=== PATIENT | female | born 1955 | race Caucasian/White ===

== ENCOUNTER 2017-01-07 01:37 | Observation (INO) | payer BC ==
--- NOTE | 2017-01-07 01:50 | CPEKG ---
Heart Rate: 78 RR Interval: 769 P-R Interval: 148 QRSD Interval: 94 QT Interval: 416 QTC Interval: 474 P [place]: 20 QRS [place]: 90 T Wave [place]: -36 EKG Severity - ABNORMAL ECG - EKG Impression: SINUS RHYTHM EKG Impression: BORDERLINE RIGHT AXIS DEVIATION EKG Impression: NONSPECIFIC T ABNORMALITIES, INFERIOR LEADS Electronically Signed By: Damaris Guzman 07-Jan-2017 06:36:06
[2017-01-07] MEDS ORDERED: ASPIRIN 81 MG CHEWABLE TAB ONE (02:01)
[2017-01-07 02:14] LABS: % IMMATURE GRANULYOCYTES 0.4 % (0.0-1.1); ABSOLUTE IMMATURE GRANULOCYTES 0.03 10^3/uL (0.00-0.10); ADD DIFF? NO; ADD MORPH? NO; ADD SCAN? NO; ATYPICAL LYMPHOCYTE FLAG 0 (0-99); FRAGMENT RBC FLAG 0 (0-99); HEMATOCRIT 41.5 % (38.0-47.0); HEMOGLOBIN 13.7 g/dL (12.6-16.3); LEFT SHIFT FLG 10 (0-99); LIPEMIA HEMOLYSIS FLAG 80 (0-99); MEAN CELL HEMOGLOBIN 29.8 pg (27.9-34.1); MEAN CELL VOLUME 90.4 fL (81.5-99.8); MEAN PLATELET VOLUME 10.7 fL (8.7-11.7); PLATELET CLUMPS FLAG 0 (0-99); PLATELET COUNT 149 10^3/uL (150-400); RED BLOOD CELL COUNT 4.59 10^6/uL (4.18-5.33); RED CELL DISTRIBUTION WIDTH 13.3 % (11.5-15.2)
[2017-01-07 02:19] LABS: ANION GAP 11 mEq/L (8-16); CALCIUM 9.4 mg/dL (8.5-10.4); CARBON DIOXIDE 22 mEq/l (22-31); CHLORIDE 102 mEq/L (97-110); CREATININE 0.9 mg/dL (0.6-1.0); GLOMERULAR FILTRATION RATE > 60; GLUCOSE 99 mg/dL (70-100); POTASSIUM 4.9 mEq/L (3.5-5.2); SODIUM 135 mEq/L (134-144)
[2017-01-07] MEDS ORDERED: ASPIRIN 81 MG CHEWABLE TAB PO ONE (02:28)
--- NOTE | 2017-01-07 02:28 | EDPHY ---
H & P Stated Complaint: CP; hasn't felt well today Time Seen by Provider: 01/07/17 01:45 HPI/ROS: HPI The patient presents with chest pain which began in between 12 and 1:00 a.m. this morning while she was trying to sleep. During the day yesterday she says that she generally was not feeling well, she had stomach pains and felt nauseated, she was not able to eat or drink much. Then at about midnight to 1: 00 a.m. she developed a strong pain throughout her chest that was severe enough to take her breath away she says. This was associated with diaphoresis and lightheadedness. It lasted for about 30 minutes and is now mostly resolved. A few days ago, her and her drove 26 hours from [place] to [place]. She does not have any leg swelling. REVIEW OF SYSTEMS Constitutional: No fever, no chills. Eyes: No discharge. ENT: No sore throat. Cardiovascular: Positive for chest pain, no palpitations. Respiratory: No cough, positive for shortness of breath. Gastrointestinal: No abdominal pain, no vomiting. Genitourinary: No hematuria. Musculoskeletal: No back pain. Skin: No rashes. Neurological: No headache. PMHx: Cholecystectomy about 5 years ago, had a stress test at this time that was normal, hypothyroidism Soc Hx: Visiting from [place], exercises frequently, walks and runs, nonsmoker FHx: Sister with PR in her 30s, thought to be related to her diabetes PHYSICAL General Appearance: Alert, no distress Eyes: Pupils equal and round no pallor or injection ENT, Mouth: Mucous membranes moist Respiratory: There are no retractions, lungs are clear to auscultation Cardiovascular: Regular rate and rhythm Gastrointestinal: Abdomen is soft and non-tender, no masses, bowel sounds normal Neurological: A&O, moves all extremities Skin: Warm and dry, no rashes Musculoskeletal: Neck is supple non tender Extremities: symmetrical, full range of motion Psychiatric: Patient is oriented X 3, there is no agitation Source: Patient Exam Limitations: No limitations - Personal History Current Tetanus/Diphtheria Vaccine: Yes - Medical/Surgical History Hx Asthma: No Hx Chronic Respiratory Disease: No Hx Diabetes: No Hx Cardiac Disease: No Hx Renal Disease: No Hx Cirrhosis: No Hx Alcoholism: No Hx HIV/AIDS: No Hx Splenectomy or Spleen Trauma: No Other PMH: PSHx: gallbladder removed, 3x c section. PMHx: hypothryoid - Social History Smoking Status: Never smoked Constitutional: Initial Vital Signs Temperature (C) 36.4 C 01/07/17 01:40 Heart Rate 86 01/07/17 01:40 Respiratory Rate 16 01/07/17 01:40 Blood Pressure 97/66 L 01/07/17 01:40 O2 Sat (%) 99 01/07/17 01:40 O2 Delivery Mode Room Air Allergies/Adverse Reactions: naproxen [From Aleve] Allergy (Verified 01/07/17 01:40) niacin Allergy (Verified 01/07/17 01:40) Home Medications: Medication Instructions Recorded Levothyroxine 01/07/17 Multi-Vitamin Daily 01/07/17 VITAMIN D 01/07/17 Medical Decision Making - Diagnostics EKG Interpretation: EKG: Complete interpretation has been separately recorded in the [facility] archive. Summary impression: T-wave inversions in lateral leads, T-wave flattening in V1, no old for comparison Imaging Results: Chest x-ray two view shows no cardiomegaly, no effusion, no infiltrate, interpreted by me, radiology interpretation pending. Differential Diagnosis: This is a 61-year-old female with family history of CAD, presenting with chest pain associated with diaphoresis and lightheadedness while she was trying to sleep tonight. Differential diagnosis includes ACS, PE, GERD. In the emergency room, EKG was obtained which showed T-wave inversions in the inferior leads. We do not have an old for comparison. Otherwise her testing was unremarkable. HEART score calcuated at 4. We have discussed admission to the hospital for provocative testing given the concerning nature of her pain as well as these EKG findings, she is in agreement with this. She remained chest pain-free in the emergency room. The patient was admitted to Dr. Mary Escobedo. - Data Points Laboratory Results: Laboratory Results 01/07/17 01:56 01/07/17 01:56 01/07/17 01/07/17 01/07/17 01:56 01:56 01:56 WBC 7.76 10^3/uL 10^3/uL (3.80-9.50) RBC 4.59 10^6/uL 10^6/uL (4.18-5.33) Hgb 13.7 g/dL g/dL (12.6-16.3) Hct 41.5 % % (38.0-47.0) MCV 90.4 fL fL (81.5-99.8) MCH 29.8 pg pg (27.9-34.1) MCHC 33.0 g/dL g/dL (32.4-36.7) RDW 13.3 % % (11.5-15.2) Plt Count 149 10^3/uL L 10^3/uL (150-400) MPV 10.7 fL fL (8.7-11.7) Neut % (Auto) 84.2 % H % (39.3-74.2) Lymph % (Auto) 9.9 % L % (15.0-45.0) [place] % (Auto) 4.0 % L % (4.5-13.0) Eos % (Auto) 1.2 % % (0.6-7.6) Baso % (Auto) 0.3 % % (0.3-1.7) Nucleat RBC Rel Count 0.0 % % (0.0-0.2) Absolute Neuts (auto) 6.54 10^3/uL H 10^3/uL (1.70-6.50) Absolute Lymphs (auto) 0.77 10^3/uL L 10^3/uL (1.00-3.00) Absolute Monos (auto) 0.31 10^3/uL 10^3/uL (0.30-0.80) Absolute Eos (auto) 0.09 10^3/uL 10^3/uL (0.03-0.40) Absolute Basos (auto) 0.02 10^3/uL 10^3/uL (0.02-0.10) Absolute Nucleated RBC 0.00 10^3/uL 10^3/uL (0-0.01) Immature Gran % 0.4 % % (0.0-1.1) Immature Gran # 0.03 10^3/uL 10^3/uL (0.00-0.10) D-Dimer 0.40 ug/mLFEU ug/mLFEU (0.00-0.50) Sodium 135 mEq/L mEq/L (134-144) Potassium 4.9 mEq/L mEq/L (3.5-5.2) Chloride 102 mEq/L mEq/L (97-110) Carbon Dioxide 22 mEq/l mEq/l (22-31) Anion Gap 11 mEq/L mEq/L (8-16) BUN 20 mg/dL mg/dL (7-23) Creatinine 0.9 mg/dL mg/dL (0.6-1.0) Estimated GFR > 60 Glucose 99 mg/dL mg/dL (70-100) Calcium 9.4 mg/dL mg/dL (8.5-10.4) Troponin I < 0.012 ng/mL ng/mL (0-0.034) Medications Given: Discontinued Medications Aspirin (Aspirin) 324 mg PO EDNOW ONE Stop: 01/07/17 02:29 Last Admin: 01/07/17 02:05 Dose: 324 mg Departure - Departure Disposition: [facility] Inpatient Acute Clinical Impression: Abnormal EKG Chest pain Qualifiers: Chest pain type: unspecified Qualified Code(s): R07.9 - Chest pain, unspecified Condition: Fair Referrals: Patient,NotPresent [Unknown] - As per Instructions
[2017-01-07 02:31] LABS: TROPONIN I < 0.012 ng/mL (0-0.034)
[2017-01-07] MEDS ORDERED: ONDANSETRON DISINTEGRATING 4 MG TAB PO PRN (03:10)
[2017-01-07] MEDS ORDERED: ONDANSETRON 4 MG/2 ML VIAL IVP PRN (03:10)
[2017-01-07] MEDS ORDERED: NITROGLYCERIN 0.4 MG BTL SL PRN (03:10)
[2017-01-07] MEDS ORDERED: ACETAMINOPHEN 325 MG TAB PO PRN (03:10)
[2017-01-07] MEDS ORDERED: LIDOCAINE 2% VISCOUS 15 ML UDCUP PO ONE (03:18)
[2017-01-07] MEDS ORDERED: HYOSCYAMINE SULFATE 0.125 MG TAB PO ONE (03:18)
[2017-01-07] MEDS ORDERED: MAG HYDROX/AL HYDROX/SIMETH 30 ML UDCUP PO ONE (03:18)
[2017-01-07] MEDS ORDERED: HYOSCYAMINE SULFATE 0.125 MG TAB ONE (03:26)
[2017-01-07] MEDS ORDERED: LIDOCAINE 2% VISCOUS 15 ML UDCUP ONE (03:27)
[2017-01-07] MEDS ORDERED: MAG HYDROX/AL HYDROX/SIMETH 30 ML UDCUP ONE (03:27)
[2017-01-07 03:32] LABS: ALBUMIN 4.3 g/dL (3.5-5.0); BILIRUBIN,TOTAL 1.2 mg/dL (0.1-1.4); BILIRUBIN-CONJUGATED 0.5 mg/dL (0.0-0.5); BILIRUBIN-UNCONJUGATED 0.7 mg/dL (0.0-1.1); TOTAL PROTEIN 7.1 g/dL (6.3-8.2)
--- NOTE | 2017-01-07 03:53 | PDCPHP ---
History and Physical Chief Complaint: chest pain - History of Present Illness This is a 61 yo female with h/o hypothyroidism who presents to the ED complaining of sub-sternal chest pressure. She and her drove 26 [place] straight from [place] to visit their daughter in [place]. Yesterday, she felt general malaise and lower abdominal discomfort. This progressed to epigastric pain and was associated with nausea and poor appetite. She hasn't eaten since noon yesterday. She had 1/4 glass of wine 2 nights ago and rarely drinks alcohol. No fevers or chills. Denies diarrhea, but feels like she needs to move her bowels. She awoke from sleep around midnight with chest pain which she describes as pressure and sharp. This was associated with diaphoresis. No radiation of the pain. No associated SOB. Her sister has diabetes and had an CT at age 35. Pt has no other cardiac risk factors. Reports recent cholesterol panel was good. No h/o htn, DM, and she is a lifetime nonsmoker. She is active, a runner. In the ED, trop is negative. Initial EKG showed some T wave inversions in inferior leads and she is admitted for further evaluation. Cardiac Risk Factors: family history of premature CAD Timing/Duration: Minutes, Resolved prior to arrival Severity: moderate Location: substernal, epigastric, abdomen Activities at Onset: sleep Associated Symptoms: loss of appetite, malaise, nausea/vomiting History Information - Allergies/Home Medication List Allergies/Adverse Reactions: naproxen [From Aleve] Allergy (Verified 01/07/17 01:40) niacin Allergy (Verified 01/07/17 01:40) Home Medications: Levothyroxine 01/07/17 [Last Taken Unknown] Multi-Vitamin Daily 01/07/17 [Last Taken Unknown] VITAMIN D 01/07/17 [Last Taken Unknown] I have personally reviewed and updated: family history, medical history, social history, surgical history - Past Medical History Additional medical history: hypothyroidism - Surgical History Reports: cholecystectomy - Family History Positive for: female first degree with premature CAD - Social History Smoking Status: Never smoked Alcohol Use: Rarely Drug Use: None Additional social history: Lives in [place], visiting her daughter here with her . They drove straight through, 26 hrs. Review of Systems ROS: 10pt was reviewed & negative except for what was stated in HPI & below DONI Risk Evaluation age greater or equal to 65: no greater or equal to 3 CAD risk factors: no known CAD(stenosis greater or eqaul to 50%): no ASA use in past 7 days: no severe angina(greater or equal to 2 episodes in 24hrs): no EKG ST changes greater or equal to 0.5mm: yes positive cardiac marker: no Total Score: 2 DONI Score: 8.3% risk Physical Exam Temp Pulse Resp BP Pulse Ox 36.4 C 86 16 97/66 L 99 01/07/17 01:40 01/07/17 01:40 01/07/17 01:40 01/07/17 01:40 01/07/17 01:40 Constitutional: no apparent distress Eyes: PERRL Ears, Nose, Mouth, Throat: moist mucous membranes Cardiovascular: regular rate and rhythym, no murmur, rub, or gallop Respiratory: no respiratory distress, clear to auscultation Gastrointestinal: normoactive bowel sounds, soft, non-tender abdomen Skin: warm Musculoskeletal: full muscle strength Neurologic: AAOx3 Psychiatric: interacting appropriately Lab Data & Imaging Review 01/07/17 01:56 01/07/17 01:56 WBC 7.76 10^3/uL (3.80-9.50) 01/07/17 01:56 RBC 4.59 10^6/uL (4.18-5.33) 01/07/17 01:56 Hgb 13.7 g/dL (12.6-16.3) 01/07/17 01:56 Hct 41.5 % (38.0-47.0) 01/07/17 01:56 MCV 90.4 fL (81.5-99.8) 01/07/17 01:56 MCH 29.8 pg (27.9-34.1) 01/07/17 01:56 MCHC 33.0 g/dL (32.4-36.7) 01/07/17 01:56 RDW 13.3 % (11.5-15.2) 01/07/17 01:56 Plt Count 149 10^3/uL (150-400) L 01/07/17 01:56 MPV 10.7 fL (8.7-11.7) 01/07/17 01:56 Neut % (Auto) 84.2 % (39.3-74.2) H 01/07/17 01:56 Lymph % (Auto) 9.9 % (15.0-45.0) L 01/07/17 01:56 [place] % (Auto) 4.0 % (4.5-13.0) L 01/07/17 01:56 Eos % (Auto) 1.2 % (0.6-7.6) 01/07/17 01:56 Baso % (Auto) 0.3 % (0.3-1.7) 01/07/17 01:56 Nucleat RBC Rel Count 0.0 % (0.0-0.2) 01/07/17 01:56 Absolute Neuts (auto) 6.54 10^3/uL (1.70-6.50) H 01/07/17 01:56 Absolute Lymphs (auto) 0.77 10^3/uL (1.00-3.00) L 01/07/17 01:56 Absolute Monos (auto) 0.31 10^3/uL (0.30-0.80) 01/07/17 01:56 Absolute Eos (auto) 0.09 10^3/uL (0.03-0.40) 01/07/17 01:56 Absolute Basos (auto) 0.02 10^3/uL (0.02-0.10) 01/07/17 01:56 Absolute Nucleated RBC 0.00 10^3/uL (0-0.01) 01/07/17 01:56 Immature Gran % 0.4 % (0.0-1.1) 01/07/17 01:56 Immature Gran # 0.03 10^3/uL (0.00-0.10) 01/07/17 01:56 D-Dimer 0.40 ug/mLFEU (0.00-0.50) 01/07/17 01:56 Sodium 135 mEq/L (134-144) 01/07/17 01:56 Potassium 4.9 mEq/L (3.5-5.2) 01/07/17 01:56 Chloride 102 mEq/L (97-110) 01/07/17 01:56 Carbon Dioxide 22 mEq/l (22-31) 01/07/17 01:56 Anion Gap 11 mEq/L (8-16) 01/07/17 01:56 BUN 20 mg/dL (7-23) 01/07/17 01:56 Creatinine 0.9 mg/dL (0.6-1.0) 01/07/17 01:56 Estimated GFR > 60 01/07/17 01:56 Glucose 99 mg/dL (70-100) 01/07/17 01:56 Calcium 9.4 mg/dL (8.5-10.4) 01/07/17 01:56 Total Bilirubin 1.2 mg/dL (0.1-1.4) 01/07/17 01:56 Conjugated Bilirubin 0.5 mg/dL (0.0-0.5) 01/07/17 01:56 Unconjugated Bilirubin 0.7 mg/dL (0.0-1.1) 01/07/17 01:56 AST 193 IU/L (14-46) H 01/07/17 01:56 ALT 87 IU/L (9-52) H 01/07/17 01:56 Alkaline Phosphatase 103 IU/L (38-126) 01/07/17 01:56 Troponin I < 0.012 ng/mL (0-0.034) 01/07/17 01:56 Total Protein 7.1 g/dL (6.3-8.2) 01/07/17 01:56 Albumin 4.3 g/dL (3.5-5.0) 01/07/17 01:56 Lipase 66.0 IU/L (23-300) 01/07/17 01:56 Visualized and Interpreted Chest x-ray results: Yes Chest X-Ray results: no infiltrate, normal Visualized and Interpreted EKG results: Yes EKG Interpretation: Positive for: normal sinsus rhythm, ST depression, T waves inversion Assessment and Plan Assessment: This is a 61 yo,White,F presenting with chest pain at intermediate risk ( DONI 2-4) for Acute coronary syndrome. Chest pain - Now resolved. Trop neg. D dimer neg. EKG with inferior T wave inversions and <[address] depression. Consider angina vs GI related given preceding GI symptoms. Cardiac risk factors include +family h/o PHD, sister had CT age 35. She received a full dose ASA in ED. -cycle troponin -repeat EKG to assess for evolutionary changes -prn ntg -defer BB given SBP in the 90's -check lipid status -stress test in am if 2nd trop neg and no dynamic EKG changes -try GI cocktail Elevated LFT's - AST/ALT pattern suggestive of etoh, though she is not a drinker. Consider viral etiology with GI symptoms. Other causes of AST predominant hepatocellular injury include PADGETT and Daryl's disease. -check acute hepatitis panel -consider u/s, further w/u if pain persists Hypothyroidism - cont Levothyroxine once med rec completed. Full code Dispo - obs Plan: The patient will be placed in observation due to concerns for Acute Coronary Syndrome. * continuous telemetry to monitor for ST segment changes * monitor vital signs every 4 hours * morphine sulfate IV and nitroglycerin sublingual as needed for chest pain * repeat EKG in 6 hours to monitor for changes that would suggest ischemia or infarction * repeat EKG as needed for recurrent chest pain * repeat troponin in 4-6 hours after onset of chest pain * Arrange for [inpatient][outpatient]stress test once chest pain is resolved, repeat troponin and EKG are negative, and the patient is symptom free for greater than 6 hours from the onset of pain * If the patient develops dynamic EKG changes consistent with ischemia/ infarction, troponin elevation, or has an abnormal stress test the patient will be treated for acute coronary syndrome as clinically indicated. * []
[2017-01-07 05:32] LABS: CHOLESTEROL 171 mg/dL (140-220); CHOLESTEROL/HDL RATIO 1.82 RATIO (1.00-4.44); HIGH DENSITY LIPOPROTEIN 94 mg/dL (40-85); LDL/HDL RATIO 0.69 RATIO (1.00-3.22); LOW DENSITY LIPOPROTEIN 65 mg/dL (80-100); NON-HIGH DENSITY LIPOPROTEIN 77 mg/dL (90-129); TRIGLYCERIDE 63 mg/dL (35-135); VERY LOW DENSITY LIPOPROTEINS 12 mg/dL (8-25)
--- NOTE | 2017-01-07 05:39 | CPEKG ---
Heart Rate: 60 RR Interval: 1000 P-R Interval: 152 QRSD Interval: 98 QT Interval: 456 QTC Interval: 456 P [place]: -9 QRS [place]: 77 T Wave [place]: 16 EKG Severity - NORMAL ECG - EKG Impression: SINUS RHYTHM Electronically Signed By: Damaris Guzman 07-Jan-2017 06:35:56
[2017-01-07] MEDS ORDERED: NS BOLUS 500 ML (Wide open) IV ONE (06:00)
--- NOTE | 2017-01-07 13:40 | PDCARST ---
CAR Stress Test Results Type of Stress Test: Nuclear TM stress test Indication: cp Description of Procedure: After informed consent was obtained, pt was exercised according to Harrison Protocol. Monitoring was performed with standard stress river tester electrode placement. Vital signs were monitored according to protocol throughout the procedure. STRESS EKG AND HEMODYNAMIC DATA. Exercise time: 10: 15 min. This is equivalent to: 10.9 METS. Resting heart rate: 75 bpm. Resting blood pressure: 102/64 mmHg. Resting O2 saturation: 96%. Peak heart rate:142 bpm. This is 89% of age predicted maximum heart rate response. Peak blood pressure: 142/64 mmHg. Exercise O2: 95%. Arrhythmias: Rare PVC with exertion; rare PACs in recovery. Reason for termination: The test was stopped due to achieving target heart rate. Symptoms: The patient experienced no typical symptoms of angina during stress or recovery. Impression: STRESS TEST ANALYSIS. Baseline ECG: SR. Stress ECG: Twi in stage that resolved with progressive exercise; 1 mm flat to upsloping STD in Stage 4. exercise induced ischemic ECG changes: equivocal. Rhythm: rare arrhythmias noted during exercise and recovery. Blood pressure: Normal blood pressure response to exercise. Exercise tolerance: The patient has normal exercise tolerance adjusted for age and gender. Symptoms: No exercise induced symptoms. Conclusion: Await nuclear images.
[2017-01-07] MEDS ORDERED: TEMAZEPAM 15 MG CAP PO PRN (16:31)
--- NOTE | 2017-01-08 00:45 | GCON ---
[f rep st] CONSULTATION CARDIOLOGY CONSULTATION DATE OF CONSULTATION: 01/07/2017 REFERRING PHYSICIAN: Mary Escobedo MD INDICATIONS: Chest discomfort. HISTORY OF PRESENT ILLNESS: The patient is 61 years old visiting from [facility]. She has no d iagnosed cardiovascular disease. Her only cardiac risk factor is that of a sister with diabetes hav ing a myocardial infarction in her 30s. She was admitted last night through the emergency [facility] with chest discomfort. Her drove 26 hours from [facility]. They arrived the day befo re yesterday. She has not felt well since. She has had a slight headache, and symptoms of nausea. She has had several episodes of diarrhea. As a result, she went to bed last night at about 6 p.m. She continued to experience mild nausea, and had several rounds of watery diarrhea. At about 11 p. m., she developed the abrupt onset of precordial chest heaviness. This was described as a diffuse p ressure sensation. She had similar symptoms in her scapula and trapezius region of her back. She w as profusely diaphoretic. She also felt slightly short of breath. Her symptoms lasted for about an hour, and subsequently resolved. She states that she has felt a little fatigued since then. How er, has not had recurrent chest discomfort. Because of these symptoms, she was admitted through the emergency department to the PCU. On arrival to the hospital, she was hemodynamically stable. Room air saturations were 99%. Her blood pressure was 97/66. Her initial electrocardiogram demonstrate s sinus rhythm, with minor nonspecific ST and T changes. Serial cardiac enzymes overnight were nega tive. Her D-dimer was negative. Her liver function tests were slightly elevated, with an AST of 19 3, and an ALT of 87. Alkaline phosphatase was normal. A basic metabolic panel was likewise normal. Her CBC was unremarkable. Currently, she states she feels well. She has not had any fever, chill s or sweats. She has never had a DVT or PE. She has no calf tenderness. The pain was not describe d as ripping or tearing. There is no history of fevers or chills. PAST MEDICAL HISTORY: 1. Hypothyroidism. 2. Vitamin D deficiency. PAST SURGICAL HISTORY: Previous cholecystectomy. FAMILY HISTORY: Apparently, her sister, who has diabetes, suffered a myocardial infarction in her 3 0s. SOCIAL HISTORY: She is , and accompanied by her . They live in [facility] near [facility]. They have children who live in the local area here. She does not smoke, and she rarely us es alcohol. REVIEW OF SYSTEMS: A full 10-point review of systems was performed, and is otherwise negative. PHYSICAL EXAMINATION: VITAL SIGNS: Her blood pressure is currently 84/43, previously 106/58. Her heart rates have been in the 50s and 60s. GENERAL: She is a healthy female in no acute distress. HEENT: Normocephalic, atraumatic. She has anicteric sclerae. Oropharynx unremarkable. NECK: Car otids are 2+ bilaterally, with no bruits. She has no jugular venous distention, adenopathy or thyro megaly. RESPIRATORY: She is breathing easily, resting comfortably. There are no accessory muscles on auscultation. She has clear lung hollis bilaterally. CARDIAC: Precordial inspection is unrema rkable. PMI is nondisplaced. On auscultation, she has a regular rate and rhythm, without murmurs, gallops, or rubs. ABDOMEN: Soft and nontender. She has normoactive bowel sounds. EXTREMITIES: W arm and dry, and well perfused. VASCULATURE: She has 2+ radial, dorsal pedal and posterior tibial pulses. LABORATORY DATA: Database is as above. In addition to the above testing, the patient had a stress myocardial perfusion imaging study. I foote ve reviewed that with Radiology. This indicated reversible perfusion defects in the region of the s eptum and lateral wall. There was a significant amount of abnormal radiotracer uptake in the gut. IMPRESSION: The patient is a pleasant 61-year-old female visiting from [facility]. She present s now with abrupt onset of chest discomfort, with minor nonspecific electrocardiographic changes, an d negative cardiac enzymes. She had a stress myocardial perfusion imaging study that indicates two- vessel redistribution. Certainly, there was a lot of gut uptake. However, I do not think that thes e areas of redistribution can be ignored, especially in light of her chest pain syndrome. Presently , her chest pain syndrome is really not consistent with aortic dissection or pericarditis. There is also no indication of an infectious process. Her elevated LFTs certainly raise the question of a p ossible hepatobiliary source. She has had a previous cholecystectomy, although this does not preclu de the development of recurrent stones or potentially stricture. RECOMMENDATIONS: She and I discussed various options. Ultimately, we decided to proceed with coron jessie angiography. The risks, benefits, and alternatives were discussed with her today. She is in ag reement with proceeding. I will defer to her primary team regarding further workup of her elevated liver function tests. /[id number]/MODL
[2017-01-08 04:17] LABS: % IMMATURE GRANULYOCYTES 0.2 % (0.0-1.1); ABSOLUTE IMMATURE GRANULOCYTES 0.01 10^3/uL (0.00-0.10); ADD DIFF? NO; ADD MORPH? NO; ADD SCAN? NO; ATYPICAL LYMPHOCYTE FLAG 0 (0-99); FRAGMENT RBC FLAG 20 (0-99); HEMATOCRIT 35.3 % (38.0-47.0); HEMOGLOBIN 11.9 g/dL (12.6-16.3); LEFT SHIFT FLG 0 (0-99); LIPEMIA HEMOLYSIS FLAG 80 (0-99); MEAN CELL HEMOGLOBIN 30.1 pg (27.9-34.1); MEAN CELL HEMOGLOBIN CONCENTR. 33.7 g/dL (32.4-36.7); MEAN CELL VOLUME 89.4 fL (81.5-99.8); MEAN PLATELET VOLUME 10.7 fL (8.7-11.7); PLATELET CLUMPS FLAG 0 (0-99); PLATELET COUNT 138 10^3/uL (150-400); RED BLOOD CELL COUNT 3.95 10^6/uL (4.18-5.33); RED CELL DISTRIBUTION WIDTH 13.2 % (11.5-15.2)
[2017-01-08 04:27] LABS: APTT 26.5 SEC (23.0-38.0); INR 1.04 (0.83-1.16); PROTIME(PATIENT) 13.5 SEC (12.0-15.0)
[2017-01-08 04:35] LABS: ANION GAP 7 mEq/L (8-16); CALCIUM 9.3 mg/dL (8.5-10.4); CARBON DIOXIDE 25 mEq/l (22-31); CHLORIDE 108 mEq/L (97-110); CHOLESTEROL 127 mg/dL (140-220); CHOLESTEROL/HDL RATIO 1.74 RATIO (1.00-4.44); CREATININE 0.9 mg/dL (0.6-1.0); GLOMERULAR FILTRATION RATE > 60; GLUCOSE 81 mg/dL (70-100); HIGH DENSITY LIPOPROTEIN 73 mg/dL (40-85); LDL/HDL RATIO 0.55 RATIO (1.00-3.22); LOW DENSITY LIPOPROTEIN 40 mg/dL (80-100); NON-HIGH DENSITY LIPOPROTEIN 54 mg/dL (90-129); POTASSIUM 3.9 mEq/L (3.5-5.2); SODIUM 140 mEq/L (134-144); TRIGLYCERIDE 71 mg/dL (35-135); VERY LOW DENSITY LIPOPROTEINS 14 mg/dL (8-25)
[2017-01-08] MEDS ORDERED: LEVOTHYROXINE 88 MCG TAB PO SCH (06:00)
[2017-01-08] MEDS ORDERED: diphenhydrAMINE 25 MG CAP PO ONE ×3 (06:00→08:46)
[2017-01-08] MEDS ORDERED: DIAZEPAM 5 MG TAB PO ONE (06:00)
[2017-01-08] MEDS ORDERED: LIDOCAINE 1% 300 MG/30 ML SDV ONE (08:28)
[2017-01-08] MEDS ORDERED: MIDAZOLAM 2 MG/2 ML VIAL ONE (08:29)
[2017-01-08] MEDS ORDERED: IOPAMIDOL (ISOVUE-370) 150 ML BTL IV ONE (08:29)
[2017-01-08] MEDS ORDERED: fentaNYL 100 MCG/2 ML INJ ONE (08:29)
[2017-01-08] MEDS ORDERED: VERAPAMIL 5 MG/2 ML VIAL ONE (08:33)
[2017-01-08] MEDS ORDERED: HEPARIN 10,000 UNIT/10 ML MDV ONE (08:33)
[2017-01-08] MEDS ORDERED: ASPIRIN EC 325 MG TAB PO ONE (08:46)
[2017-01-08] MEDS ORDERED: FAMOTIDINE 20 MG TAB ONE (08:46)
[2017-01-08] MEDS ORDERED: DIAZEPAM 5 MG TAB ONE (08:46)
[2017-01-08] MEDS ORDERED: CETIRIZINE 10 MG TAB PO SCH (09:00)
[2017-01-08] MEDS ORDERED: NON-FORMULARY NEW DRUG (Fexofenadine Hcl [Allegra Allergy] 60 MG) PO SCH (09:00)
[2017-01-08] MEDS ORDERED: ASPIRIN 325 MG TAB PO ONE (09:00)
[2017-01-08] MEDS ORDERED: ATROPINE SULFATE 1 MG/10 ML SYR IVP PRN (09:38)
--- NOTE | 2017-01-08 09:59 | PDDXCAT ---
Diagnostic Cath Note - . Date: 01/11/17 [employer]ire Sorter: Ted Indication: High-risk criteria on noninvasive testing (choose option below) High-risk criteria on non-invasive testing: stress-induced large perfusion defect (particularly if anterior) - Procedure Access: right wrist Procedure: left heart catheterization, coronary angiography, left ventriculogram - Materials Left Heart Cath size: 5F Left Heart Cath materials: JL3.5, JR4.0 - Findings-Left Heart Catheterization LM: Normal. LAD: Single D1. Normal. LCX: Single large multi-branching OM. Normal. RCA: Small. Dominant. LVEF: 60%. Wall motion: Normal. Complications: None. Estimated blood loss: <50ml Closure method: TR Band Assessment: Normal coronary anatomy. Plan: Evaluate for non-cardiac etiologies of chest pain. Intervention: None. Patient Problems: Problems Problem Status Onset Abnormal EKG Acute Chest pain Acute
[2017-01-08 10:33] LABS: ALBUMIN 3.4 g/dL (3.5-5.0); BILIRUBIN,TOTAL 0.7 mg/dL (0.1-1.4); BILIRUBIN-CONJUGATED 0.5 mg/dL (0.0-0.5); BILIRUBIN-UNCONJUGATED 0.2 mg/dL (0.0-1.1); TOTAL PROTEIN 5.9 g/dL (6.3-8.2)
[2017-01-08 11:18] VITALS: TEMP 97.7
[2017-01-08 15:18] VITALS: BP 91/53; PULSE 61; RESP 17; O2SAT 97
--- NOTE | 2017-01-08 19:37 | GDS ---
[f rep st] DISCHARGE SUMMARY DISCHARGE DIAGNOSES: 1. Chest pain, possibly related to transient biliary obstruction. 2. Negative angiogram. 3. Elevated liver function tests, improving quickly. HISTORY: This 61-year-old female, who just drove from [place] in a 26-hour drive, developed an josé miguel r's worth of chest pain. It felt like pain she had before she had her cholecystectomy. HOSPITAL COURSE: Patient was admitted, and cardiac enzymes are negative. She did have a stress rina t, which did show some T-wave inversions, which was stress-induced T-wave inversions. This was then switched over to a nuclear medicine scan. This did show some mild perfusion abnormalities. It was elected to undergo heart catheterization the following day. Heart catheterization showed normal ve ssels. She did have elevated liver function tests, and they were trending down fairly quickly. Ultrasound showed some enlarged bile ducts, which were expected for being post cholecystectomy. I wonder if he r pain was due to some transient biliary obstruction, which is now resolving itself. She is eating well. She will be discharged home. /[id number]/MODL
== END 2017-01-08 17:55 | disposition home or self-care (01) ==
LOC: F2W 04:20
PROVIDERS: ADMIT Hospitalist; ATTEND Internal Medicine
PROC: 4A023N7 Measurement of Cardiac Sampling and Pressure, Left Heart, Percutaneous Approach (ICD-10-PCS; principal; 2017-01-07)
PROC: B2111ZZ Fluoroscopy of Multiple Coronary Arteries using Low Osmolar Contrast (ICD-10-PCS; principal; 2017-01-07)
PROC: B2151ZZ Fluoroscopy of Left Heart using Low Osmolar Contrast (ICD-10-PCS; principal; 2017-01-07)
DX: R07.9 Chest pain, unspecified (principal); R94.5 Abnormal results of liver function studies; E03.9 Hypothyroidism, unspecified
CPT/HCPCS: 71020; 76700; 78452; 93005; 93017; 93458; 99285; A9500; C1769; G0378; G0472; J1644; J2250; J3010; Q9967